=== PATIENT | male | born 1990 | race Caucasian/White ===

== ENCOUNTER 2017-09-03 10:39 | Emergency (ER) | payer OTHER ==
[~2017-09-03] VITALS: Ht 182.9 cm; Wt 80.0 kg
[~2017-09-03 10:39] MED LIST: AMOX500T PO; Z.0.NO CURRENT MEDS
[2017-09-03 11:05] VITALS: BP 147/73; PULSE 83; RESP 16; TEMP 97.9; O2SAT 99
== END 2017-09-03 12:34 | disposition left against medical advice (07) ==
LOC: PHED 10:39
DX: H57.9 Unspecified disorder of eye and adnexa (principal); R68.89 Other general symptoms and signs
CPT/HCPCS: 99281